=== PATIENT | female | born 1935 | race Caucasian/White ===

== ENCOUNTER 2019-07-24 22:41 | Emergency (ER) | payer MEDICARE ==
[~2019-07-24] VITALS: Ht 175.3 cm; Wt 97.7 kg
[2019-07-24 23:01] LABS: HEMATOCRIT 34 % (35-52); HEMOGLOBIN 10.2 G/DL (11.5-16.0); MEAN CORPUSCULAR HEMOGLOBIN 28 PG (25-34); MEAN CORPUSCULAR VOLUME 95 FL (80-99); WHITE BLOOD COUNT 11.9 10^3/uL (4.3-11.0)
[2019-07-24 23:02] LABS: BASOPHILS # (AUTO) 0.1 10^3/uL (0.0-0.1); BASOPHILS % (AUTO) 1 % (0-10); EOSINOPHILS # (AUTO) 0.6 10^3/uL (0.0-0.3); EOSINOPHILS % (AUTO) 5 % (0-10); LYMPHOCYTES # (AUTO) 1.3 X 10^3 (1.0-4.0); LYMPHOCYTES % (AUTO) 11 % (12-44); MEAN CORPUSCULAR HGB CONC 30 G/DL (32-36); MONOCYTES % (AUTO) 9 % (0-12); NEUTROPHILS # (AUTO) 8.8 X 10^3 (1.8-7.8); NEUTROPHILS % (AUTO) 74 % (42-75); PLATELET COUNT 405 10^3/uL (130-400); RED CELL DISTRIBUTION WIDTH 15.4 % (10.0-14.5)
--- NOTE | 2019-07-24 23:04 | ED Dyspnea ---
General Chief Complaint: Respiratory Problems Stated Complaint: SOB Source of Information: Patient History of Present Illness Date Seen by Provider: Jul 24, 2019 Time Seen by Provider: 23:03 Initial Comments 84 yo M presenting from [facility] with shortness of breath. He states he has been having difficulty breathing for the last few days and it was worse tonight. he was at [facility] doing some shopping and the staff felt he was having difficulty breathing to the point they were concerned about him and forced him to come to the ED. He denies any increased swelling in his legs. He has not had any trouble sleeping or laying flat. He denies having any fever or chills. He denies any chest pains or nausea. He has not had any use of oxygen at home. he has a hx of diabetes and htn but does not know the medicine that he takes. He follows with Dr. Saul Tang at [facility]. He denies any problems with his heart in the past. Allergies and Home Medications Allergies Coded Allergies: No Known Drug Allergies (Unverified , 07/24/19) Patient Home Medication List Home Medication List Reviewed: Yes Review of Systems Review of Systems Constitutional: No chills, No fever; malaise EENTM: nose congestion Respiratory: dyspnea on exertion; No hemoptysis, No orthopnea; short of breath; No wheezing Cardiovascular: No chest pain, No edema, No palpitations Gastrointestinal: No diarrhea, No nausea, No vomiting Genitourinary: no symptoms reported Musculoskeletal: no symptoms reported Skin: no symptoms reported Psychiatric/Neurological: Denies Headache, Denies Numbness Past Zmpykqa-Daznxg-Lwcsmt Hx Past Med/Social Hx: Reviewed Nursing Past Med/Soc Hx Patient Social History Alcohol Use: Denies Use Recreational Drug Use: No Smoking Status: Former Smoker Type Used: Cigarettes 2nd Hand Smoke Exposure: No Recent Foreign Travel: No Contact w/Someone Who Travel: No Past Medical History Cardiac: Yes Hypertension Endocrine: Yes Diabetes, Non-Insulin dep Physical Exam Vital Signs Vital Signs - First Documented 07/24/19 07/24/19 22:55 23:01 Temp 36.3 Pulse 82 Resp 20 B/P (MAP) 172/97 (122) Pulse Ox 98 O2 Delivery Nasal Cannula O2 Flow Rate 2.00 Capillary Refill : Height, Weight, BMI Height: '" Weight: lbs. oz. kg; BMI Method: General Appearance: WD/WN, Moderate Distress (working hard to breath) HEENT: PERRL/EOMI, Pharynx Normal Neck: Supple Respiratory: Chest Non Tender, Accessory Muscle Use, Decreased Breath Sounds, Respiratory Distress (working hard to breath); No Wheezing Cardiovascular: Normal Peripheral Pulses, Irregularly Irregular Gastrointestinal: No Pulsatile Mass, Non Tender, Soft Neurologic/Psychiatric: Alert, Oriented x3 Skin: Warm/Dry, Pallor Focused Exam Lactate Level 07/24/19 22:55: Lactic Acid Level 1.80 Lactic Acid Level Laboratory Tests Test 07/24/19 22:55 Lactic Acid Level 1.80 MMOL/L (0.50-2.00) Progress/Results/Core Measures Results/Orders Lab Results Laboratory Tests Test 07/24/19 22:50 07/24/19 22:55 Range/Units White Blood Count 11.9 H 4.3-11.0 10^3/uL Red Blood Count 3.60 L 4.35-5.85 10^6/uL Hemoglobin 10.2 L 11.5-16.0 G/DL Hematocrit 34 L 35-52 % Mean Corpuscular Volume 95 80-99 FL Mean Corpuscular Hemoglobin 28 25-34 PG Mean Corpuscular Hemoglobin Concent 30 L 32-36 G/DL Red Cell Distribution Width 15.4 H 10.0-14.5 % Platelet Count 405 H 130-400 10^3/uL Mean Platelet Volume 9.0 7.4-10.4 FL Neutrophils (%) (Auto) 74 42-75 % Lymphocytes (%) (Auto) 11 L 12-44 % Monocytes (%) (Auto) 9 0-12 % Eosinophils (%) (Auto) 5 0-10 % Basophils (%) (Auto) 1 0-10 % Neutrophils # (Auto) 8.8 H 1.8-7.8 X 10^3 Lymphocytes # (Auto) 1.3 1.0-4.0 X 10^3 Monocytes # (Auto) 1.0 0.0-1.0 X 10^3 Eosinophils # (Auto) 0.6 H 0.0-0.3 10^3/uL Basophils # (Auto) 0.1 0.0-0.1 10^3/uL Sodium Level 137 135-145 MMOL/L Potassium Level 4.6 3.6-5.0 MMOL/L Chloride Level 98 98-107 MMOL/L Carbon Dioxide Level 25 21-32 MMOL/L Anion Gap 14 5-14 MMOL/L Blood Urea Nitrogen 19 H 7-18 MG/DL Creatinine 1.39 H 0.60-1.30 MG/DL Estimat Glomerular Filtration Rate 36 BUN/Creatinine Ratio 14 Glucose Level 153 H 70-105 MG/DL Calcium Level 9.5 8.5-10.1 MG/DL Corrected Calcium 8.5-10.1 MG/DL Magnesium Level 2.2 1.6-2.4 MG/DL Total Bilirubin 0.4 0.1-1.0 MG/DL Aspartate Amino Transf (AST/SGOT) 29 5-34 U/L Alanine Aminotransferase (ALT/SGPT) 34 0-55 U/L Alkaline Phosphatase 83 40-136 U/L Troponin I < 0.30 <0.30 NG/ML Pro-B-Type Natriuretic Peptide 410.7 H <75.0 PG/ML Total Protein 8.1 6.4-8.2 GM/DL Albumin 4.6 H 3.2-4.5 GM/DL Lactic Acid Level 1.80 0.50-2.00 MMOL/L My Orders Orders - IVAN NORTON MD Chest 1 View Ap/Pa Only (07/24/19 22:50) Cbc With Automated Diff (07/24/19 22:51) Comprehensive Metabolic Panel (07/24/19 22:51) Blood Culture (07/24/19 22:51) Magnesium (07/24/19 22:51) Ekg Tracing (07/24/19 22:51) O2 (07/24/19 22:51) Ed Iv/Invasive Line Start (07/24/19 22:51) Monitor-Rhythm Ecg Trace Only (07/24/19 22:51) Lactic Acid Analyzer (07/24/19 22:51) Troponin I Fs (07/24/19 23:02) Probnp Fs (07/24/19 23:02) Metoprolol Tartrate Injection (Lopressor (07/24/19 23:14) Aspirin Chewable Tablet (Baby Aspirin Ch (07/24/19 23:14) Albuterol/Ipra Inhalation Soln (Duoneb I (07/24/19 23:27) Svn Small Volume Nebulizer (07/24/19 23:27) Carvedilol Tablet (Coreg Tablet) (07/24/19 23:52) Vital Signs/I&O 07/24/19 07/24/19 22:55 23:01 Temp 36.3 Pulse 82 Resp 20 B/P (MAP) 172/97 (122) Pulse Ox 98 97 O2 Delivery Nasal Cannula Room Air O2 Flow Rate 2.00 Progress Progress Note #1: Progress Note check labs and ECG with CXR. He is hypertensive so will try a dose of Metoprolol to try and help with his blood pressure and try a duoneb treatment for his diminished breath sounds and difficulty breathing. Supplemental oxygen to see if it helps his breathing. Progress Note #2: Progress Note pt reports he has no significant improvement in his breathing with the oxygen. Jalen pham has a mild elevation of WBC level at 11.9. Mild anemia with HGB of 10.2. ECG shows sinus rhythm with frequent PACs. On my review of his 1 view CXR he has no definite infiltrate or effusion. He has some cardiomegaly and poor inspiratory effort. Progress Note #3: Progress Note Pt reports he is doing better and wants to go home. He has an appt to see Dr. Tang today, Tuesday, in the clinic and wants to go to that. he has no acute significant abnormality on his labs to account for his shortness of breath. He does have high blood pressure but he has some improvement with metoprolol and states he has medicine for home still. Initial ECG Impression Date: Jul 24, 2019 Initial ECG Impression Time: 23:10 Initial ECG Rate: 87 Initial ECG Rhythm: Normal Sinus Initial ECG Comparisson: No Previous ECG Available Comment Sinus Rhythm with rate of 87 and frequent PACs. SD interval of [address] elevation. QT interval of 371 ms and QTc interval of 447 ms. No prior tracing available for comparison. Diagnostic Imaging Diagonstic Imaging: Xray Plain Films/CT/US/NM/MRI: chest Comments On my review of his 1 view CXR he has no acute infiltrate or effusion but has some cardiomegaly and poor inspiratory effort. Departure Impression Primary Impression: Shortness of breath Additional Impression: Hypertension Qualified Codes: I10 - Essential (primary) hypertension Disposition: HOME, SELF-CARE Condition: Stable Departure-Patient Inst. Decision time for Depature: 23:54 Referrals: [facility] [place] Patient Instructions: Shortness of Breath (Dyspnea) (DC), High Blood Pressure (DC) Add. Discharge Instructions: Follow up with Dr. Tang as scheduled today, Tuesday. Continued on your regular medicines as prescribed. All discharge instructions reviewed with patient and/or family. Voiced understanding. IVAN NORTON MD Jul 24, 2019 23:03 POS
[2019-07-24] MEDS ORDERED: ASPIRIN 81 MG CHEW (CHILDREN'S ASA) PO STA (23:14)
[2019-07-24] MEDS ORDERED: meTOprolol 5 MG/5 ML (LOPRESSOR) VIAL IV STA (23:14)
--- NOTE | 2019-07-24 23:22 | NUR ---
pt spit baby asa out refusing to take them
[2019-07-24] MEDS ORDERED: RT-ALBUTEROL/IPRATROPIUM 3 ML (DUONEB) VIAL INH STA (23:27)
[2019-07-24 23:35] LABS: BILIRUBIN,TOTAL 0.4 MG/DL (0.1-1.0); BUN/CREATININE RATIO 14; CALCIUM 9.5 MG/DL (8.5-10.1); CARBON DIOXIDE 25 MMOL/L (21-32); CHLORIDE 98 MMOL/L (98-107); CREATININE SERUM 1.39 MG/DL (0.60-1.30); GFR ESTIMATED 36; GLUCOSE 153 MG/DL (70-105); MAGNESIUM 2.2 MG/DL (1.6-2.4); POTASSIUM 4.6 MMOL/L (3.6-5.0); SODIUM 137 MMOL/L (135-145)
[2019-07-24 23:36] LABS: ALANINE AMINOTRANSFERASE 34 U/L (0-55); ALBUMIN 4.6 GM/DL (3.2-4.5); ALKALINE PHOSPHATASE 83 U/L (40-136); TOTAL PROTEIN 8.1 GM/DL (6.4-8.2)
[2019-07-24] MEDS ORDERED: CARVEDILOL 3.125 MG (COREG) TABLET PO STA (23:52)
[2019-07-24 23:59] VITALS: BP 183/107
--- NOTE | 2019-07-25 08:20 | Diagnostic Imaging Report ---
EXAMINATION: Chest 1 view. HISTORY: Shortness of breath. FINDINGS: No comparison available. The lungs are clear. No edema. No pneumonia. No pleural effusion. No pneumothorax. Heart is normal in size. IMPRESSION: 1. Clear lungs. Dictated by: Dictated on workstation # [id number]
== END 2019-07-24 23:59 | disposition home or self-care (01) ==
LOC: ER FS 22:46 → EDSEX 22:46 → ER FS 23:59
DX: R06.02 Shortness of breath (principal); I10 Essential (primary) hypertension; E11.9 Type 2 diabetes mellitus without complications; Z87.891 Personal history of nicotine dependence
CPT/HCPCS: 36415; 71045; 80053; 83605; 83735; 83880; 84484; 85025; 87040; 93005; 96374

== ENCOUNTER → 2019-08-14 | Outpatient (CLI) | payer MEDICARE ==
--- NOTE | 2019-08-14 10:27 | Diagnostic Imaging Report ---
EXAMINATION: CT Abdomen Pelvis without contrast. TECHNIQUE: Multiple contiguous axial images were obtained through the abdomen and pelvis without the use of intravenous contrast. All CT scans use one or more of the following dose optimizing techniques: automated exposure control, MA and/or KvP adjustment based on a patient size and exam type, or iterative reconstruction. HISTORY: BLOOD IN STOOL COMPARISON: None available. FINDINGS: Limited views of the lower thorax show moderate coronary artery calcifications.. The liver is normal without focal lesion. There is no biliary ductal dilation. Gallbladder is normal. Pancreas is normal. Spleen is normal. Adrenal glands are normal. There is a 5 mm stone in the lower pole of the left kidney. There is a 5 mm mid left ureteral stone. There is no significant dilation of the left ureter above the stone. A simple cyst is seen in the left kidney. No suspicious renal lesions. There is no hydronephrosis. Urinary bladder is normal. There is a fairly large fat-containing right inguinal hernia. There are no dilated loops of large or small bowel. No obstruction or inflammation. No free fluid or air. No abdominal or pelvic lymphadenopathy. Aorta is normal in caliber without aneurysm. There are no suspicious osseous lesions. 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 IMPRESSION: 1. No etiology for blood in stool. 2. Mid left ureteral stone measuring 5 mm without significant dilation of the left ureter. No hydronephrosis. Dictated by: Dictated on workstation # [id number]
== END ==
LOC: RAD FS 09:46
PROVIDERS: ATTEND Family Medicine
DX: N20.1 Calculus of ureter (principal); K92.1 Melena
CPT/HCPCS: 74176

== ENCOUNTER → 2021-03-24 | Outpatient (CLI) | payer MEDICARE ==
[2021-03-24 11:58] LABS: HEMATOCRIT 23 % (40-54); HEMOGLOBIN 7.4 g/dL (13.3-17.7); MEAN CORPUSCULAR HGB CONC 32 g/dL (32-36)
[2021-03-24 12:00] LABS: BASOPHILS % (AUTO) 0 % (0-10); EOSINOPHILS # (AUTO) 0.1 10^3/uL (0.0-0.3); EOSINOPHILS % (AUTO) 1 % (0-10); LYMPHOCYTES # (AUTO) 1.5 10^3/uL (1.0-4.0); LYMPHOCYTES % (AUTO) 30 % (12-44); MEAN CORPUSCULAR HEMOGLOBIN 36 pg (25-34); MEAN CORPUSCULAR VOLUME 113 fL (80-99); MEAN PLATELET VOLUME 9.3 fL (9.0-12.2); MONOCYTES # (AUTO) 1.3 10^3/uL (0.0-1.0); MONOCYTES % (AUTO) 26 % (0-12); NEUTROPHILS % (AUTO) 41 % (42-75); PLATELET COUNT 89 10^3/uL (130-400); WHITE BLOOD COUNT 4.9 10^3/uL (4.3-11.0)
[2021-03-24 12:17] LABS: ALBUMIN 3.9 GM/DL (3.2-4.5); BILIRUBIN,TOTAL 0.5 MG/DL (0.1-1.0); CREATININE SERUM 1.94 MG/DL (0.60-1.30); TOTAL PROTEIN 7.8 GM/DL (6.4-8.2)
[2021-03-24 12:36] LABS: EOSINOPHILS % (MANUAL) 1 %; LYMPHOCYTES % (MANUAL) 29 %; MONOCYTES % (MANUAL) 23 %; NEUTROPHILS % (MANUAL) 47 %
[2021-03-24 12:37] LABS: ANISOCYTOSIS MODERATE; HYPOCHROMASIA SLIGHT; MICROCYTOSIS SLIGHT; PLATELET ESTIMATE 101; POIKILOCYTOSIS SLIGHT; POLYCHROMASIA SLIGHT
--- NOTE | 2021-03-24 14:27 | Diagnostic Imaging Report ---
INDICATION: Great toe ulceration. Soft tissues are 3 view left foot performed. No priors Soft tissue swelling and medial to the 1st MTP present. There is some lucency along the medial margin of the distal 1st metatarsal which may be some erosive features. No soft tissue gas. No opaque foreign body. There is arthritic change to the hind, mid and forefoot. There is flattening of the arch and plantar calcaneal spurring. The lateral view shows some likely soft tissue calcifications at the plantar aspect of the foot. IMPRESSION: Swelling and likely plantar soft tissue calcifications. Erosions along the medial margin of the distal head of the 1st metatarsal present. Radiographic manifestations of osteomyelitis could not be excluded. If there is clinical features of infection present follow-up with MRI versus 3 phase bone scanning would be recommended to exclude a bony infection. Dictated by: Dictated on workstation # [id number]
== END ==
LOC: RAD 11:17
PROVIDERS: ATTEND Surgery
DX: E11.621 Type 2 diabetes mellitus with foot ulcer (principal); E11.42 Type 2 diabetes mellitus with diabetic polyneuropathy; L97.512 Non-pressure chronic ulcer of other part of right foot with fat layer exposed; L97.522 Non-pressure chronic ulcer of other part of left foot with fat layer exposed; I70.235 Atherosclerosis of native arteries of right leg with ulceration of other part of foot
CPT/HCPCS: 36415; 73630; 80053; 83036; 84134; 85007; 85027

== ENCOUNTER → 2021-03-24 | Outpatient (CLI) | payer MEDICARE | LOC: WOUNDCARE 09:17 | PROVIDERS: ATTEND Surgery | DX: E11.621 Type 2 diabetes mellitus with foot ulcer (principal); E11.42 Type 2 diabetes mellitus with diabetic polyneuropathy; L97.512 Non-pressure chronic ulcer of other part of right foot with fat layer exposed; L97.522 Non-pressure chronic ulcer of other part of left foot with fat layer exposed; I70.235 Atherosclerosis of native arteries of right leg with ulceration of other part of foot | CPT/HCPCS: 11042; A6197; G0463 ==

== ENCOUNTER → 2021-04-01 | Outpatient (CLI) | payer MEDICARE | LOC: WOUNDCARE 09:49 | PROVIDERS: ATTEND Surgery | DX: E11.621 Type 2 diabetes mellitus with foot ulcer (principal); I96 Gangrene, not elsewhere classified; E11.42 Type 2 diabetes mellitus with diabetic polyneuropathy; L97.512 Non-pressure chronic ulcer of other part of right foot with fat layer exposed; L97.522 Non-pressure chronic ulcer of other part of left foot with fat layer exposed; I70.235 Atherosclerosis of native arteries of right leg with ulceration of other part of foot | CPT/HCPCS: 11042; A6197; G0463 ==

== ENCOUNTER → 2021-04-08 | Outpatient (CLI) | payer MEDICARE | LOC: WOUNDCARE 09:29 | PROVIDERS: ATTEND Surgery | DX: E11.621 Type 2 diabetes mellitus with foot ulcer (principal); I96 Gangrene, not elsewhere classified; L97.512 Non-pressure chronic ulcer of other part of right foot with fat layer exposed; L97.522 Non-pressure chronic ulcer of other part of left foot with fat layer exposed; I70.235 Atherosclerosis of native arteries of right leg with ulceration of other part of foot | CPT/HCPCS: 11042; G0463 ==

== ENCOUNTER → 2021-04-15 | Outpatient (CLI) | payer MEDICARE | LOC: WOUNDCARE 10:11 | PROVIDERS: ATTEND Surgery | DX: E11.621 Type 2 diabetes mellitus with foot ulcer (principal); I96 Gangrene, not elsewhere classified; E11.42 Type 2 diabetes mellitus with diabetic polyneuropathy; L97.522 Non-pressure chronic ulcer of other part of left foot with fat layer exposed | CPT/HCPCS: 11042; G0463 ==

== ENCOUNTER → 2021-04-22 | Outpatient (CLI) | payer MEDICARE | LOC: WOUNDCARE 10:02 | PROVIDERS: ATTEND Surgery | DX: E11.621 Type 2 diabetes mellitus with foot ulcer (principal); E11.42 Type 2 diabetes mellitus with diabetic polyneuropathy; L97.522 Non-pressure chronic ulcer of other part of left foot with fat layer exposed | CPT/HCPCS: 99213 ==